=== PATIENT | female | born 1995 | race Caucasian/White ===

== ENCOUNTER 2016-09-14 15:49 | Emergency (ER) | payer OTHER ==
[~2016-09-14] VITALS: Ht 165.1 cm; Wt 94.0 kg
[2016-09-14 15:52] VITALS: Ht 165.1 cm; Wt 94.0 kg
[2016-09-14] MEDS ORDERED: ONDANSETRON (ODT) 4 MG TAB ODT STA (17:42)
[2016-09-14] MEDS ORDERED: ACETAMINOPHEN 325 MG TAB PO ONE (18:00)
[2016-09-14 18:13] LABS: ADD SCAN DIFF NO
[2016-09-14 18:16] LABS: BASOPHIL # 0.1 10^3/ul (0.0-0.1); BASOPHILS % 0.8 % (0.0-2.0); EOSINOPHILS # 0.2 10^3/ul (0.0-0.5); EOSINOPHILS % 2.5 % (0.0-7.0); HEMATOCRIT 38.9 % (37.0-47.0); HEMOGLOBIN 12.5 g/dl (12.0-16.0); LYMPHOCYTES # 2.9 10^3/ul (0.8-2.9); LYMPHOCYTES % 30.9 % (15.0-51.0); MEAN CORPUSCULAR HEMOGLOBIN 27.2 pg (29.0-33.0); MEAN CORPUSCULAR HGB CONC 32.1 g/dl (32.0-37.0); MEAN CORPUSCULAR VOLUME 84.6 fl (82.0-101.0); MEAN PLATELET VOLUME 10.9 fl (7.4-10.4); MONOCYTE # 0.9 10^3/ul (0.3-0.9); MONOCYTES % 9.1 % (0.0-11.0); NEUTROPHIL # 5.3 10^3/ul (1.6-7.5); NEUTROPHILS % 56.4 % (39.0-77.0); PLATELET COUNT 231 10^3/UL (140-415); RED CELL DISTRIBUTION WIDTH 13.2 % (11.5-14.5); WHITE BLOOD COUNT 9.3 10^3/ul (4.8-10.8)
[2016-09-14 18:30] LABS: ADD UMIC YES; UR ASCORBIC ACID NEGATIVE (NEGATIVE); UR BILIRUBIN (Dip) NEGATIVE (NEGATIVE); UR BLOOD (Dip) NEGATIVE (NEGATIVE); UR CLARITY SLIGHTLY CLOUDY (CLEAR); UR COLOR YELLOW (YELLOW); UR GLUCOSE (Dip) NEGATIVE (NEGATIVE); UR KETONES (Dip) NEGATIVE (NEGATIVE); UR LEUKOCYTE ESTERASE (Dip) 1+ Leu/ul (NEGATIVE); UR MUCUS FEW /HPF (NONE SEEN); UR NITRITE (Dip) NEGATIVE (NEGATIVE); UR RBC 2 /HPF (0-5); UR SPECIFIC GRAVITY (Dip) 1.031 (1.003-1.030); UR SQUAMOUS EPITHELIAL CELL FEW /HPF (FEW); UR TOTAL PROTEIN (Dip) NEGATIVE (NEGATIVE); UR UROBILINOGEN (Dip) NEGATIVE (NEGATIVE)
[2016-09-14 18:52] LABS: ALBUMIN 4.1 g/dl (3.3-4.9); ALBUMIN/GLOBULIN RATIO 1.13; BILIRUBIN,INDIRECT 0.1 mg/dl (0-1.1); BILIRUBIN,TOTAL 0.1 mg/dl (0.2-1.3); CREATININE 0.76 mg/dl (0.44-1.00); POTASSIUM 4.2 mmol/L (3.5-5.1); TOTAL PROTEIN 7.7 g/dl (6.1-8.1)
[2016-09-14] MEDS ORDERED: ONDA4TAB14 PO (19:14)
[2016-09-14] MEDS ORDERED: CEPH-443 PO (19:14)
[2016-09-14] MEDS ORDERED: ACET500C5 PO (19:14)
--- NOTE | 2016-09-14 19:20 | ERD ---
ER Documentation Chief Complaint Date/Time DATE: 09/14/16 TIME: 19:17 Chief Complaint WOKE UP WITH LT GROIN PAIN HPI 21-year-old female patient with no significant past medical history presents the ED complaining of a pressure-like pain to her left side of the abdomen that started earlier this morning associated with dysuria and nausea. Reports that her last bowel movement was yesterday. States that her last menses started 1 week ago. Denies any vaginal bleeding, vaginal discharge, hematuria, urgency, frequency, diarrhea, constipation. ROS All systems reviewed and are negative except as per history of present illness. Medications Home Meds Active Scripts Cephalexin* (Keflex*) 500 Mg Capsule, 500 MG PO QID for 7 Days, CAP Prov:JOHN WIGGINS PA-C 09/14/16 Acetaminophen* (Tylophen*) 500 Mg Capsule, 1 CAP PO Q6H Y for PAIN AND OR ELEVATED TEMP, #20 CAP Prov:JOHN WIGGINS PA-C 09/14/16 Ondansetron (Ondansetron Odt) 4 Mg Tab.rapdis, 4 MG PO Q6H Y for NAUSEA AND/OR VOMITING, #10 TAB Prov:JOHN WIGGINS PA-C 09/14/16 PMhx/Soc Hx Alcohol Use: No Hx Substance Use: No Hx Tobacco Use: No Smoking Status: Never smoker Physical Exam Vitals Vital Signs Date Time Temp Pulse Resp B/P Pulse Ox O2 Delivery O2 Flow Rate FiO2 09/14/16 15:52 98.1 84 18 131/70 98 Physical Exam Const: [id number], well-nourished. In no acute distress. Head: Atraumatic, normocephalic Eyes: Normal Conjunctiva without injection. No purulent discharge. ENT: Normal external ear, nose. Moist oropharynx without tonsillar exudates. Non -erythematous pharynx. Uvula midline. No drooling. No trismus. Neck: No cervical midline tenderness. Full range of motion. No meningismus. No cervical lymphadenopathy. No JVD. Resp: Clear to auscultation bilaterally. No wheezing, rhonchi, rales, or crackles. No accessory muscle use. No retractions. Cardio: Regular rate and rhythm. No murmurs, rubs or gallops. Abd: Soft, left upper quadrant tenderness, non distended. Normal bowel sounds. No palpable masses. No rebound tenderness. No guarding. Negative McBurney's point. Negative psoas sign. Negative obturator sign. Skin: No petechiae or rashes Back: No midline tenderness. No CVA tenderness. Ext: No cyanosis, or edema. Neur: Awake and alert. Normal gait. Normal coordination. Psych: Normal Mood and Affect Result Diagram: 09/14/16175009/14/161750 Results 24 hrs Laboratory Tests Test 09/14/16 17:50 09/14/16 17:51 Urine Color YELLOW Urine Clarity SLIGHTLY CLOUDY Urine pH 6.0 Urine Specific [place] 1.031 Urine Ketones NEGATIVEmg/dL Urine Nitrite NEGATIVEmg/dL Urine Bilirubin NEGATIVEmg/dL Urine Urobilinogen NEGATIVEmg/dL Urine Leukocyte Esterase 1+Bharathi/ul Urine Microscopic RBC 2/HPF Urine Microscopic WBC 3/HPF Urine Squamous Epithelial Cells FEW/HPF Urine Calcium Oxalate Crystals FEW/HPF Urine Mucus FEW/HPF Urine Hemoglobin NEGATIVEmg/dL Urine Glucose NEGATIVEmg/dL Urine Total Protein NEGATIVEmg/dl White Blood Count 9.310^3/ul Red Blood Count 4.6010^6/ul Hemoglobin 12.5g/dl Hematocrit 38.9% Mean Corpuscular Volume 84.6fl Mean Corpuscular Hemoglobin 27.2pg Mean Corpuscular Hemoglobin Concent 32.1g/dl Red Cell Distribution Width 13.2% Platelet Count 97240^3/UL Mean Platelet Volume 10.9fl Neutrophils % 56.4% Lymphocytes % 30.9% Monocytes % 9.1% Eosinophils % 2.5% Basophils % 0.8% Neutrophils # 5.310^3/ul Lymphocytes # 2.910^3/ul Monocytes # 0.910^3/ul Eosinophils # 0.210^3/ul Basophils # 0.110^3/ul Nucleated Red Blood Cells # 0.010^3/ul Sodium Level 144mmol/L Potassium Level 4.2mmol/L Chloride Level 103mmol/L Carbon Dioxide Level 27mmol/L Anion Gap 18 Blood Urea Nitrogen 12mg/dl Creatinine 0.76mg/dl Glucose Level 81mg/dl Calcium Level 9.0mg/dl Total Bilirubin 0.1mg/dl Direct Bilirubin 0.00mg/dl Indirect Bilirubin 0.1mg/dl Aspartate Amino Transf (AST/SGOT) 31IU/L Alanine Aminotransferase (ALT/SGPT) 48IU/L Alkaline Phosphatase 75IU/L Total Protein 7.7g/dl Albumin 4.1g/dl Globulin 3.60g/dl Albumin/Globulin Ratio 1.13 Lipase 42U/L Current Medications Medications (Trade) Dose Ordered Sig/Aliyah Route PRN Reason Start Time Stop Time Status Last Admin Dose Admin Acetaminophen (Tylenol Tab) 650 mg ONCE ONCE PO 09/14/16 18:00 09/14/16 18:01 DC 09/14/16 18:33 Ondansetron HCl (Zofran Odt) 4 mg ONCE STAT ODT 09/14/16 17:42 09/14/16 17:44 DC 09/14/16 18:33 Procedures/MDM 21-year-old female patient with no significant past medical history presents to the ED complaining of nausea, dysuria, left upper quadrant abdominal pain. Patient is afebrile and nontoxic-appearing. Patient has normal vital signs. Patient was further worked up with CBC, CMP, lipase, UA, urine . Patient's pain and symptoms have improved after treatment with Tylenol, Zofran. CBC: No leukocytosis. No e/o of systemic infection. No e/o anemia. CMP: No e/o severe acidosis, alkalosis, renal failure, diabetic ketoacidosis, liver disease Lipase within normal limits. Urine: No leukocyte esterase, no nitrites, no hematuria. Urine : Negative A differential diagnosis considered includes but is not limited to gastritis, GERD, peptic ulcer disease, cholecystitis, choledocholithiasis, cholangitis, pancreatitis, appendicitis, bowel obstruction, ileus, volvulus, nephrolithiasis , pyelonephritis, hepatitis, perforated viscus, diverticulitis, abdominal hernia , acute abdomen, mesenteric ischemia or other emergent conditions. Discharge medications: Keflex, Tylenol, Zofran Follow up with primary care physician in 1-2 days for referral to isotope technician. Instructed patient to return to the ED sooner for any worsening symptoms. Patient's questions were answered. Patient understood and agreed with discharge plan. Patient discharged stable. Departure Diagnosis: Primary Impression: Dysuria Additional Impression: Abdominal pain, left upper quadrant Condition: Stable Patient Instructions: Dysuria, Abdominal Pain, Unknown Cause, (Female) Referrals: COMM[facility]ITY CLINICS YOU HAVE RECEIVED A MEDICAL SCREENING EXAM AND THE RESULTS INDICATE THAT YOU DO NOT HAVE A CONDITION THAT REQUIRES URGENT TREATMENT IN THE EMERGENCY DEPARTMENT. FURTHER EVALUATION AND TREATMENT OF YOUR CONDITION CAN WAIT UNTIL YOU ARE SEEN IN YOUR DOCTORS OFFICE WITHIN THE NEXT 1-2 DAYS. IT IS YOUR RESPONSIBILITY TO MAKE AN APPOINTMENT FOR FOLOW-UP CARE. IF YOU HAVE A PRIMARY DOCTOR --you should call your primary doctor and schedule an appointment IF YOU DO NOT HAVE A PRIMARY DOCTOR YOU CAN CALL OUR PHYSICIAN REFERRAL HOTLINE AT IF YOU CAN NOT AFFORD TO SEE A PHYSICIAN YOU CAN CHOSE FROM THE FOLLOWING [facility] [address] [facility] [address] [address] [facility]. [facility] [address] [facility] [facility] [address] [facility] [facility] [address] [facility] [facility] [address] [facility]. [facility] [address] [facility]. [facility] YOU HAVE RECEIVED A MEDICAL SCREENING EXAM AND THE RESULTS INDICATE THAT YOU DO NOT HAVE A CONDITION THAT REQUIRES URGENT TREATMENT IN THE EMERGENCY DEPARTMENT. FURTHER EVALUATION AND TREATMENT OF YOUR CONDITION CAN WAIT UNTIL YOU ARE SEEN IN YOUR DOCTORS OFFICE WITHIN THE NEXT 1-2 DAYS. IT IS YOUR RESPONSIBILITY TO MAKE AN APPOINTMENT FOR FOLOW-UP CARE. IF YOU HAVE A PRIMARY DOCTOR --you should call your primary doctor and schedule and appointment IF YOU DO NOT HAVE A PRIMARY DOCTOR YOU CAN CALL OUR PHYSICIAN REFERRAL HOTLINE AT . IF YOU CAN NOT AFFORD TO SEE A PHYSICIAN YOU CAN CHOSE FROM THE FOLLOWING [facility] INSTITUTIONS[facility] [address] [place] [address] [facility] [address] [place] [address] [facility] [address] [place] [address] [facility] URGENT CARE/SPECIALTIES Additional Instructions: Call your primary care doctor TOMORROW for an appointment during the next 2-3 days for a referral to see a isotope technician. See the doctor sooner or return here if your condition worsens before your appointment time - fever, vomiting, worsening abdominal pain, diarrhea. JOHN WIGGINS PA-C Sep 14, 2016 19:19
== END 2016-09-14 19:30 | disposition home or self-care (01) ==
LOC: FTE 15:49
DX: R30.0 Dysuria (principal); R10.12 Left upper quadrant pain
CPT/HCPCS: 36415; 80053; 83690; 85025; Z7502; Z7610; 99284